=== PATIENT | female | born 1960 ===

== ENCOUNTER 2018-12-20 08:30 | Outpatient (CLI) | payer OTHER ==
[~2018-12-20] VITALS: Ht 152.4 cm; Wt 73.5 kg
[~2018-12-20 08:30] MED LIST: AMOX1TAB12 PO; DERMOTIC20 ML OTIC; FLONASE16 G1 NS; FLONASE16 GM NASAL; OFLOXACIN5 ML OTIC; SWIM EAR DRO29.57 ML OTIC; SWIM EAR DROPS30 ML OTIC; ZYRTEC10 MG PO
[2018-12-20] MEDS ORDERED: FLONASE16 GM NASAL (11:05)
[2018-12-20] MEDS ORDERED: ZYRTEC10 MG PO (11:05)
[2018-12-20] MEDS ORDERED: DERMOTIC20 ML OTIC (11:06)
== END 2018-12-20 08:45 | disposition home or self-care (01) ==
LOC: OFIC 805 08:30
DX: J34.3 Hypertrophy of nasal turbinates (principal); L29.9 Pruritus, unspecified; J31.0 Chronic rhinitis